=== PATIENT | male | born 1970 | race African-American/Black ===

== ENCOUNTER 2017-05-22 15:52 | Emergency (ER) | payer SELFPAY ==
[2017-05-22] MEDS ORDERED: NORMAL SALINE 1000 ML 1,000 ML IV PRN (17:06)
--- NOTE | 2017-05-22 17:09 | ER Document Report ---
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 Patient states that he was working with the GI, for approximately 5 hours. Denies any chest pain, shortness of breath or abdominal pain. TRAVEL OUTSIDE OF THE [place] IN LAST 30 DAYS: No - HPI Onset: Just prior to arrival Onset/Duration: Gradual Quality of pain: No pain Severity: None Pain Level: Denies Associated Symptoms: None Exacerbated by: Denies Relieved by: Denies Similar symptoms previously: No Recently seen / treated by doctor: No - Related Data Smoking: Cigarettes Frequency of alcohol use: None Drug Abuse: None Allergies/Adverse Reactions: No Known Allergies Allergy (Unverified 05/22/17 15:58) Past Medical History - General Information source: Patient - Social History Cigarette use (# per day): Yes - 1/4 Chew tobacco use (# tins/day): No Frequency of alcohol use: None Drug Abuse: None Lives with: Family Family history: None - Medical History Medical History: Negative Renal/ Medical History: Denies: Hx Peritoneal Dialysis Surgical Hx: Negative Review of Systems - Review of Systems Constitutional: denies: Chills, Fever EENT: No symptoms reported Cardiovascular: No symptoms reported Respiratory: No symptoms reported Gastrointestinal: No symptoms reported Genitourinary: No symptoms reported Male Genitourinary: No symptoms reported Musculoskeletal: No symptoms reported Skin: No symptoms reported Hematologic/Lymphatic: No symptoms reported Neurological/Psychological: See HPI Physical Exam - Vital signs Vitals: Temp Pulse Resp BP Pulse Ox 97.8 F 107 H 28 H 142/100 H 100 05/22/17 15:59 05/22/17 15:59 05/22/17 15:59 05/22/17 15:59 05/22/17 15:59 Notes: Physical exam: GENERAL: 47-year-old man, alert and oriented 3, no acute distress HEAD: Atraumatic, normocephalic. EYES: Pupils equal round and reactive to light, extraocular movements intact, sclera anicteric, conjunctiva are normal. ENT: TMs normal, nares patent, oropharynx clear without exudates. Moist mucous membranes. NECK: Normal range of motion, supple without lymphadenopathy or JVD. LUNGS: Breath sounds clear to auscultation bilaterally and equal. No wheezes rales or rhonchi. HEART: Regular rate and rhythm without murmurs, rubs or gallops. ABDOMEN: Soft, normoactive bowel sounds. No tenderness to palpation. No guarding, no rebound. No masses appreciated. EXTREMITIES: Normal range of motion, no pitting or edema. No clubbing or cyanosis. NEUROLOGICAL: Cranial nerves II through XII grossly intact. Normal speech, normal gait. PSYCH: Normal mood, normal affect. SKIN: Warm, Dry, normal turgor, no rashes or lesions noted. Course - Re-evaluation Re-evalutation: 05/22/17 18:37 I discussed case with patient and recommended he be admitted for continued IV fluids and repeat kidney tests and further kidney workup. Patient states he feels great and he is absolutely refusing. Patient does look and I will give him resources to follow-up with. Advised him that he should have a follow-up with a primary care doctor for both his blood pressure and repeat kidney function tests. 05/22/17 18:44 - Vital Signs Vital signs: Temp Pulse Resp BP Pulse Ox 97.8 F 73 16 151/91 H 100 05/22/17 18:31 05/22/17 18:31 05/22/17 18:31 05/22/17 18:31 05/22/17 18:31 - Laboratory Result Diagrams: 05/22/17 17:05 05/22/17 18:00 Laboratory results interpreted by me: 05/22/17 05/22/17 17:05 18:00 WBC 16.9 H RBC 5.65 H Hgb 17.2 H Hct 53.1 H RDW 15.4 H Absolute Neutrophils 12.8 H BUN 25 H Creatinine 2.31 H Est GFR ( Amer) 37 L Est GFR (Non-Af Amer) 31 L Calcium 10.6 H Direct Bilirubin 0.6 H Total Protein 10.0 H Albumin 5.2 H Doctor's Discharge - Discharge Clinical Impression: High blood pressure, Acute kidney injury Heat exhaustion Qualifiers: Encounter type: initial encounter Qualified Code(s): T67.5XXA - Heat exhaustion , unspecified, initial encounter Condition: Stable Disposition: HOME, SELF-CARE Instructions: Heat Exhaustion ([facility]), High Blood Pressure ([facility]) Additional Instructions: As we discussed: Your kidney tests show that they are not functioning at 100%. This is most likely due to heat exhaustion and I want you to continue fluids for the next 48 hours. Additionally, your blood pressure was elevated. This can adversely affect your kidney function as well. It is important that you follow-up with a primary care doctor: I left the number for the [facility] which is the free [facility] that is affiliated with the [facility]. In the meantime, return to the emergency room for any pain, weakness or any concerns which are getting worse. I do recommend that you get your kidney tests rechecked within the next week or so. Forms: Elevated Blood Pressure, Return to Work Referrals: [facility] [Provider Group] - Follow up as needed
[2017-05-22 17:23] LABS: ABSOLUTE BASOPHILS # (AUTO) 0.1 10^3/uL (0.0-0.2); ABSOLUTE EOSINOPHILS # (AUTO) 0.4 10^3/uL (0.0-0.6); ABSOLUTE LYMPHOCYTES (AUTO) 2.4 10^3/uL (0.5-4.7); ABSOLUTE MONOCYTES (AUTO) 1.2 10^3/uL (0.1-1.4); ABSOLUTE NEUT (AUTO) 12.8 10^3/uL (1.7-8.2); BASOPHILS % (AUTO) 0.4 % (0-2); EOSINOPHILS % (AUTO) 2.6 % (0-6); HEMATOCRIT 53.1 % (37.9-51.0); HEMOGLOBIN 17.2 g/dL (13.5-17.0); HGB HCT DIFFERENCE -1.5; LYMPHOCYTES % (AUTO) 14.2 % (13-45); MEAN CORPUSCULAR HEMOGLOBIN 30.5 pg (27.0-33.4); MEAN CORPUSCULAR HGB CONC 32.4 g/dL (32.0-36.0); MEAN CORPUSCULAR VOLUME 94 fl (80-97); RED BLOOD COUNT 5.65 10^6/uL (4.35-5.55); RED CELL DISTRIBUTION WIDTH 15.4 % (11.5-14.0); SEGMENTED NEUTROPHILS % (AUTO) 75.8 % (42-78); WHITE BLOOD COUNT 16.9 10^3/uL (4.0-10.5)
[2017-05-22 18:22] LABS: ALANINE AMINOTRANSFERASE 29 U/L (21-72); ALBUMIN 5.2 g/dL (3.5-5.0); ALKALINE PHOSPHATASE 112 U/L (38-126); ANION GAP 14 (5-19); ASPARTATE AMINO TRANSFERASE 46 U/L (17-59); BILIRUBIN,DIRECT 0.6 mg/dL (0.0-0.4); BILIRUBIN,TOTAL 0.9 mg/dL (0.2-1.3); BLOOD UREA NITROGEN 25 mg/dL (7-20); CALCIUM 10.6 mg/dL (8.4-10.2); CARBON DIOXIDE 25 mmol/L (22-30); CHLORIDE 101 mmol/L (98-107); CREATININE RESULT 2.31 mg/dL (0.52-1.25); GLUCOSE 103 mg/dL (75-110); MAGNESIUM 2.3 mg/dL (1.6-2.3); SODIUM 139.8 mmol/L (137-145)
[2017-05-22 18:32] VITALS: BP 151/91
== END 2017-05-22 18:44 | disposition home or self-care (01) ==
LOC: ER 15:52
DX: N17.9 Acute kidney failure, unspecified (principal); T67.5XXA Heat exhaustion, unspecified, initial encounter; M79.1 Myalgia; R53.1 Weakness; R42 Dizziness and giddiness; F17.210 Nicotine dependence, cigarettes, uncomplicated; R03.0 Elevated blood-pressure reading, without diagnosis of hypertension; X30.XXXA Exposure to excessive natural heat, initial encounter; Y93.H3 Activity, building and construction
CPT/HCPCS: 99283; 36415; 83735; 85025; 80053; J7030

== ENCOUNTER 2020-05-07 12:58 | Emergency (ER) | payer SELFPAY ==
[2020-05-07] MEDS ORDERED: RINGERS SOLUTION,LACTATED 1,000 ML IV ONE (13:07)
--- NOTE | 2020-05-07 13:08 | ER Document Report ---
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 Denies any trauma or injury. No medications for pain. PE: Alert and oriented x3. Mild distress noted. Lungs: Clear to auscultation without rales, rhonchi, wheezes. Heart: Regular rate and rhythm without murmurs, rubs, gallops. Abdomen soft with generalized tenderness no guarding, no rebound, positive bowel sounds x4. I have greeted and performed a rapid initial assessment of this patient. A comprehensive ED assessment and evaluation of the patient, analysis of test results and completion of the medical decision making process will be conducted by additional ED providers. I have specifically instructed the patient or family members with the patient to immediately return to any nursing staff should anything change in the patient's condition or with their chief complaint. TRAVEL OUTSIDE OF THE [place] IN LAST 30 DAYS: No - Related Data Allergies/Adverse Reactions: No Known Allergies Allergy (Unverified 05/22/17 15:58) Past Medical History - Social History Family history: None Renal/ Medical History: Denies: Hx Peritoneal Dialysis Physical Exam - Vital signs Vitals: Temp Pulse Resp BP Pulse Ox 98.7 F 86 18 150/100 H 100 05/07/20 13:02 05/07/20 13:02 05/07/20 13:02 05/07/20 13:02 05/07/20 13:02 Course - Vital Signs Vital signs: Temp Pulse Resp BP Pulse Ox 98.7 F 86 18 150/100 H 100 05/07/20 13:02 05/07/20 13:02 05/07/20 13:02 05/07/20 13:02 05/07/20 13:02
[2020-05-07 13:39] LABS: ABSOLUTE BASOPHILS # (AUTO) 0.1 10^3/uL (0.0-0.2); ABSOLUTE EOSINOPHILS # (AUTO) 0.2 10^3/uL (0.0-0.6); ABSOLUTE LYMPHOCYTES (AUTO) 1.9 10^3/uL (0.5-4.7); ABSOLUTE MONOCYTES (AUTO) 0.9 10^3/uL (0.1-1.4); BASOPHILS % (AUTO) 0.5 % (0-2); EOSINOPHILS % (AUTO) 1.6 % (0-6); HEMATOCRIT 43.7 % (37.9-51.0); LYMPHOCYTES % (AUTO) 16.1 % (13-45); MEAN CORPUSCULAR HEMOGLOBIN 32.4 pg (27.0-33.4); MEAN CORPUSCULAR HGB CONC 34.3 g/dL (32.0-36.0); MEAN CORPUSCULAR VOLUME 94 fl (80-97); MONOCYTES % (AUTO) 7.1 % (3-13); PLATELET COUNT 304 10^3/uL (150-450); RED BLOOD COUNT 4.63 10^6/uL (4.35-5.55); RED CELL DISTRIBUTION WIDTH 14.8 % (11.5-14.0); SEGMENTED NEUTROPHILS % (AUTO) 74.7 % (42-78); TOTAL CELLS COUNTED % (AUTO) 100 %; WHITE BLOOD COUNT 12.1 10^3/uL (4.0-10.5)
[2020-05-07 13:45] LABS: APPEARANCE,URINE SLIGHTLY-CLOUDY; BILIRUBIN,URINE NEGATIVE (NEGATIVE); COLOR,URINE YELLOW; GLUCOSE, URINE NEGATIVE (NEGATIVE); KETONES,URINE TRACE mg/dL (NEGATIVE); LEUKOCYTE ESTERASE,URINE NEGATIVE (NEGATIVE); NITRITE,URINE NEGATIVE (NEGATIVE); PROTEIN,URINE 30 mg/dL (NEGATIVE); URINE SPECIFIC GRAVITY 1.026
[2020-05-07 13:58] LABS: ALKALINE PHOSPHATASE 98 U/L (38-126); ANION GAP 9 (5-19); ASPARTATE AMINO TRANSFERASE 37 U/L (17-59); BILIRUBIN,TOTAL 0.7 mg/dL (0.2-1.3); BLOOD UREA NITROGEN 18 mg/dL (7-20); CALCIUM 10.5 mg/dL (8.4-10.2); CARBON DIOXIDE 26 mmol/L (22-30); CHLORIDE 99 mmol/L (98-107); CREATINE KINASE 133 U/L (55-170); GLUCOSE 118 mg/dL (75-110); TOTAL PROTEIN 8.9 g/dL (6.3-8.2)
[2020-05-07 14:10] LABS: CREATINE KINASE MB 0.75 ng/mL (<4.55); TROPONIN I 0.014 ng/mL
[2020-05-07 16:47] VITALS: BP 147/90
--- NOTE | 2020-05-08 00:29 | EKG REPORT ---
SEVERITY:- ABNORMAL ECG - SINUS RHYTHM PROBABLE LEFT ATRIAL ABNORMALITY LEFT VENTRICULAR HYPERTROPHY : Confirmed by: Rolf Chapin 08-May-2020 00:28:15
== END 2020-05-07 17:20 | disposition left against medical advice (07) ==
LOC: ER 12:58
DX: Z53.21 Procedure and treatment not carried out due to patient leaving prior to being seen by health care provider (principal)
CPT/HCPCS: 36415; 80053; 81001; 82550; 82553; 84484; 85025